=== PATIENT | female | born 1990 | race Caucasian/White ===

== ENCOUNTER 2020-03-10 07:07 | Inpatient (IN) | payer BC ==
[~2020-03-10 07:07] MED LIST: Bupivacaine 0.25% 10 ML SDV ONE
[2020-03-10] MEDS ORDERED: Sodium Chloride 0.9% 10 ML Syringe FLUSH PRN (12:48)
[2020-03-10] MEDS ORDERED: Nalbuphine 10 MG/ML Syringe IVPUSH PRN (12:48)
[2020-03-10] MEDS ORDERED: fentaNYL 100 MCG/2 ML SDV EPIDUR PRN (12:50)
[2020-03-10] MEDS ORDERED: ePHEDrine 50 MG/ML SDV IVPUSH PRN (12:50)
[2020-03-10] MEDS ORDERED: Ondansetron 4 MG/2 ML SDV IVPUSH PRN (12:50)
--- NOTE | 2020-03-10 12:53 | PCM.PREANE ---
Preanesthetic Assessment - Anesthesia/Transfusion/Family Hx Anesthesia History: Prior Anesthesia Without Reaction Family History of Anesthesia Reaction: No Transfusion History: No Prior Transfusion(s) Intubation History: Unknown - Review of Systems General: No Symptoms Pulmonary: No Symptoms Cardiovascular: No Symptoms Gastrointestinal: No Symptoms Neurological: No Symptoms Other: Reports: None - Physical Assessment NPO Status Date: 03/10/20 NPO Status Time: 12:15 Vital Signs: HR:105 B/P:149/90 Sat:99% Temp:98.8 Resp:16 Height: 1.73 m Weight: 83.552 kg ASA Class: 2 Mental Status: Alert & Oriented x3 Airway Class: Mallampati = 2 Dentition: Reports: Normal Dentition, Caries Thyro-Mental Finger Breadths: 3 Mouth Opening Finger Breadths: 3 ROM/Head Extension: Full Lungs: Clear to Auscultation, Normal Respiratory Effort Cardiovascular: Regular Rate, Regular Rhythm, No Murmurs - Lab Values: Labs reviewed and noted and within acceptable ranges to proceed with epidural if desired. - Allergies Allergies/Adverse Reactions: Allergies Allergy/AdvReac Type Severity Reaction Status Date / Time No Known Allergies Allergy Verified 03/13/18 16:16 - Anesthesia Plan Pre-Op Medication Ordered: None - Acknowledgements Anesthesia Type Planned: Epidural Pt an Appropriate Candidate for the Planned Anesthesia: Yes Alternatives and Risks of Anesthesia Discussed w Pt/Guardian: Yes Pt/Guardian Understands and Agrees with Anesthesia Plan: Yes PreAnesthesia Questionnaire SCOUT History: Reports: - Past Surgical History HEENT Surgical History: Reports: Oral Surgery Other HEENT Surgeries/Procedures: [place] teeth - HOME MEDS Home Medications: Home Meds Pnv No.95/Ferrous Fum/Folic AC [ Tablet] 1 tab PO DAILY 03/13/18 [History] Acetaminophen [Tylenol] 650 mg PO Q4H PRN tablet 03/15/18 [Rx] - CURRENT (IN HOUSE) MEDS Current Meds: Current Medications Ephedrine Sulfate (Ephedrine Sulfate) 5 mg IVPUSH ASDIRECTED PRN PRN Reason: Hypotension Fentanyl (Sublimaze) 100 mcg EPIDUR Q3H PRN PRN Reason: Pain Fentanyl/Bupivacaine HCl (Fentanyl/Bupivacaine/Ns 2 Mcg-0.125% 100 Ml) 100 ml EPIDUR ASDIRECTED FRIDA Phenylephrine HCl 1 mg/ Sodium (Chloride) 10.1 mls @ 1 mls/sec IV TITRATE FRIDA; Protocol Ondansetron HCl (Zofran) 4 mg IVPUSH ONETIME PRN PRN Reason: Nausea/Vomiting
[2020-03-10] MEDS ORDERED: Lactated Ringers 1,000 ML IV SCH (13:00)
[2020-03-10] MEDS ORDERED: Bupivacaine/fentaNYL/NS 100 ML Bag EPIDUR SCH (13:00)
[2020-03-10] MEDS ORDERED: Oxytocin/Lactated Ringers 10 UNIT/1,000 ML BAG IV SCH ×2 (13:00)
[2020-03-10] MEDS ORDERED: Phenylephrine 1 MG in Sodium Chloride 0.9% 10 ML IV SCH (13:00)
--- NOTE | 2020-03-10 21:14 | PCM.SN.2 ---
- Free Text/Narrative Note: Venita is a 29-year-old 2 now para 2-0-0-2 white female who was admitted and on the afternoon of 03/10/2020 elective induction of labor at 40-0/7 weeks with a due date of 03/10/2020. He underwent artificial rupture membranes which was followed approximately 2 hours later by Pitocin augmentation. With this she progressed reasonably well to approximately 6 cm. Shortly thereafter she received epidural analgesia for pain control in L&D. She rapidly went to complete cervical dilation and at 2044 hrs. on 03/10/2020 she delivered a viable, jarrett, male infant with Apgars of 8 and 9, a weight of 3590 g (7 pounds 14.6 ounces, a length of 20 inches a direct occiput anterior position over an intact perineum. Baby is placed on mom's abdomen and cord was allowed to pulsate for 2 to 3 minutes. Pitocin was increased to 500 cc/h to facilitate increase in uterine tone and decrease likelihood of uterine bleeding. The umbilical cord was then clamped x2 and cut by the baby's Father Christiano. The umbilical cord had 3 vessels within it. Cord blood was obtained. The perineum and vagina were evaluated and no significant lacerations were noted. No sutures were placed. The placenta then delivered in a [place] presentation, appeared intact and complete and was discarded per patient desire. Estimated blood loss was 100 cc. Patient plans to breast-feed. Condition: Good
[2020-03-10] MEDS ORDERED: Acetaminophen 325 MG Tab PO PRN (21:43)
[2020-03-10] MEDS ORDERED: Benzocaine/Menthol 20%-0.5% Spray 56 GM Canister TOP PRN (21:43)
[2020-03-10] MEDS ORDERED: Witch Hazel Medicated Pads 40/Jar TOP PRN (21:43)
[2020-03-10] MEDS: Ibuprofen 600 MG Tab PO PRN (22:55)
[2020-03-10] MEDS: Docusate Sodium 100 MG Cap PO PRN (22:55)
--- NOTE | 2020-03-11 07:49 | PCM48HPAN ---
Post Anesthesia Note - EVALUATION WITHIN 48HRS OF ANESTHETIC Vital Signs in Normal Range: Yes Patient Participated in Evaluation: Yes Respiratory Function Stable: Yes Airway Patent: Yes Cardiovascular Function Stable: Yes Hydration Status Stable: Yes Pain Control Satisfactory: Yes Nausea and Vomiting Control Satisfactory: Yes Mental Status Recovered: Yes Vital Signs: Last Vital Signs Temp 36.3 C 03/11/20 00:44 Pulse 79 03/11/20 00:44 Resp 15 03/11/20 00:44 BP 120/67 03/11/20 00:44 Pulse Ox 98 03/11/20 00:44 - COMMENTS/OBSERVATIONS Free Text/Narrative:: NO ANESTHESIA COMPLICATIONS NOTED
[2020-03-11] MEDS: Prenatal Multivitamin with Calcium/Folic Acid/Iron Tab PO SCH (08:42)
--- NOTE | 2020-03-11 11:58 | PCM.DCSUM1 ---
Discharge Summary - Hospital Course Free Text/Narrative:: Venita is a 29-year-old 2 now para 2-0-0-2 white female who was admitted and on the afternoon of 03/10/2020 elective induction of labor at 40-0/7 weeks with a due date of 03/10/2020. He underwent artificial rupture membranes which was followed approximately 2 hours later by Pitocin augmentation. With this she progressed reasonably well to approximately 6 cm. Shortly thereafter she received epidural analgesia for pain control in L&D. She rapidly went to complete cervical dilation and at 2045 hrs. on 03/10/2020 she delivered a viable, jarrett, male infant with Apgars of 8 and 9, a weight of 3590 g (7 pounds 14.6 ounces, a length of 20 inches a direct occiput anterior position over an intact perineum. Baby is placed on mom's abdomen and cord was allowed to pulsate for 2 to 3 minutes. Pitocin was increased to 500 cc/h to facilitate increase in uterine tone and decrease likelihood of uterine bleeding. The umbilical cord was then clamped x2 and cut by the baby's Father Christiano. The umbilical cord had 3 vessels within it. Cord blood was obtained. The perineum and vagina were evaluated and no significant lacerations were noted. No sutures were placed. The placenta then delivered in a [place] presentation, appeared intact and complete and was discarded per patient desire. Estimated blood loss was 100 cc. Patient plans to breast-feed. patient is done well. She is ambulating without problems, has minimal lochia and is voiding without concerns. She is breast-feeding well. Patient is desiring discharge home. Condition: Good Diagnosis: Stroke: No - Discharge Data Discharge Date: 03/11/20 Discharge Disposition: Home, Self-Care 01 Condition: Good - Referral to Home Health Primary Care Physician: Franklin Morales MD - Patient Instructions Diet: Regular Diet as Tolerated (Nursing diet with increased calories and calcium as recommended) Activity: As Tolerated (No intercourse or tampons until bleeding resolves) Driving: May Drive Today Showering/Bathing: May Shower Showering/Bathing, Other: May take a bath Notify Provider of: Fever, Increased Pain, Swelling and Redness, Nausea and/or Vomiting - Discharge Plan Home Medications: Home Meds Pnv No.95/Ferrous Fum/Folic AC [ Tablet] 1 tab PO DAILY 03/13/18 [History] Acetaminophen [Tylenol] 650 mg PO Q4H PRN tablet 03/15/18 [Rx] Acetaminophen [Tylenol] 650 mg PO Q4H PRN tablet 03/11/20 [Rx] Ibuprofen [Motrin] 600 mg PO Q4H PRN tablet 03/11/20 [Rx] Referrals: Franklin Morales MD [Primary Care Provider] - (Return to clinicDr. Morales or Hortensia Helms, nurse practitioner in 2 weeks.) - Discharge Summary/Plan Comment DC Time >30 min.: No Discharge Summary/Plan Comment: Discharge instructions: 1. Discharge home 2. Diet, activity and follow-up discussed with patient. Recommend nursing diet with increased calories and calcium. 3. Precautions given concern increased pain, bleeding, temperature, signs/symptoms of DVT/PE. 4. Medications per home medication was printed, discussed with and given to the patient. 5. [facility]. Diagnosis: Term -delivered Condition: Good - Patient Data Vitals - Most Recent: Last Vital Signs Temp 36.5 C 03/11/20 08:22 Pulse 73 03/11/20 08:22 Resp 16 03/11/20 08:22 BP 112/84 03/11/20 08:22 Pulse Ox 100 03/11/20 08:22 Weight - Most Recent: 83.552 kg I&O - Last 24 hours: Intake & Output 03/10/20 03/11/20 03/11/20 22:59 06:59 14:59 Intake Total 1500 240 Balance 1500 240 Lab Results - Last 24 hrs: Laboratory Results - last 24 hr 03/10/20 03/10/20 03/10/20 Range/Units 13:00 13:03 13:03 WBC 8.69 (3.98-10.04) K/mm3 RBC 3.95 L (3.98-5.22) M/mm3 Hgb 12.7 (11.2-15.7) gm/dl Hct 37.7 (34.1-44.9) % MCV 95.4 H (79.4-94.8) fl MCH 32.2 (25.6-32.2) pg MCHC 33.7 (32.2-35.5) g/dl RDW Std Deviation 46.1 (36.4-46.3) fL Plt Count 201 (182-369) K/mm3 MPV 9.5 (9.4-12.3) fl Neut % (Auto) 67.6 (34.0-71.1) % Lymph % (Auto) 18.2 L (19.3-51.7) % [place] % (Auto) 10.9 (4.7-12.5) % Eos % (Auto) 2.6 (0.7-5.8) Baso % (Auto) 0.5 (0.1-1.2) % Neut # (Auto) 5.87 (1.56-6.13) K/mm3 Lymph # (Auto) 1.58 (1.18-3.74) K/mm3 [place] # (Auto) 0.95 H (0.24-0.36) K/mm3 Eos # (Auto) 0.23 (0.04-0.36) K/mm3 Baso # (Auto) 0.04 (0.01-0.08) K/mm3 RPR Non-reactive (NONREACTIVE) COVID-19 (DAVID) Negative (NEGATIVE) Med Orders - Current: Current Medications Acetaminophen (Tylenol) 650 mg PO Q4H PRN PRN Reason: mild pain or fever Benzocaine/Menthol (Dermoplast Pain Relief [place]) 0 gm TOP ASDIRECTED PRN PRN Reason: Perineal Comfort Measure Last Admin: 03/10/20 22:54 Dose: 1 canister Documented by: Docusate Sodium (Colace) 100 mg PO BID PRN PRN Reason: Constipation Last Admin: 03/10/20 22:55 Dose: 100 mg Documented by: Ibuprofen (Motrin) 600 mg PO Q4H PRN PRN Reason: Mild pain or fever Last Admin: 03/10/20 22:55 Dose: 600 mg Documented by: Fernandaat Multivit/[place]/Iron/Folic Ac ( Plus Iron) 1 each PO DAILY FRIDA Last Admin: 03/11/20 08:42 Dose: 1 each Documented by: [facility]) 1 pad TOP ASDIRECTED PRN PRN Reason: Perineal Comfort Measure Last Admin: 03/10/20 22:55 Dose: 1 canister Documented by: Discontinued Medications Bupivacaine HCl (Sensorcaine-Mpf 0.25%) 10 ml .ROUTE .STK-MED ONE Stop: 03/10/20 00:01 Ephedrine Sulfate (Ephedrine Sulfate) 5 mg IVPUSH ASDIRECTED PRN PRN Reason: Hypotension Fentanyl (Sublimaze) 100 mcg EPIDUR Q3H PRN PRN Reason: Pain Last Admin: 03/10/20 20:04 Dose: 100 mcg Documented by: Fentanyl/Bupivacaine HCl (Fentanyl/Bupivacaine/Ns 2 Mcg-0.125% 100 Ml) 100 ml EPIDUR ASDIRECTED FRIDA Last Admin: 03/10/20 20:06 Dose: 100 ml Documented by: Phenylephrine HCl 1 mg/ Sodium (Chloride) 10.1 mls @ 1 mls/sec IV TITRATE FRIDA; Protocol Lactated Ringer's (Ringers, Lactated) 1,000 mls @ 100 mls/hr IV ASDIRECTED FRIDA Last Admin: 03/10/20 17:58 Dose: 100 mls/hr Documented by: Oxytocin/Lactated Ringer's (Pitocin In Lr 10 Units/1,000 Ml) 10 unit in 1,000 mls @ 500 mls/hr IV .CONTINUOUS FRIDA Oxytocin/Lactated Ringer's (Pitocin In Lr 10 Units/1,000 Ml) 10 unit in 1,000 mls @ 12 mls/hr IV TITRATE FRIDA; Protocol Last Titration: 03/10/20 19:57 Dose: 8 munits/min, 48 mls/hr Documented by: Nalbuphine HCl (Nubain) 10 mg IVPUSH Q2H PRN PRN Reason: Pain Ondansetron HCl (Zofran) 4 mg IVPUSH ONETIME PRN PRN Reason: Nausea/Vomiting Sodium Chloride (Saline Flush) 10 ml FLUSH ASDIRECTED PRN PRN Reason: Keep Vein Open
[2020-03-11] MEDS: Ibuprofen 600 MG Tab PO PRN ×2 (17:07→21:34)
[2020-03-12] MEDS: Ibuprofen 600 MG Tab PO PRN (03:06)
[2020-03-12] MEDS: Docusate Sodium 100 MG Cap PO PRN (03:07)
[2020-03-12] MEDS: Prenatal Multivitamin with Calcium/Folic Acid/Iron Tab PO SCH (10:10)
--- NOTE | 2020-03-21 07:20 | PCM.LDHP ---
L&D History of Present Illness - General Date of Service: 03/21/20 Admit Problem/Dx: Venita is a 29-year-old 2 para 1-0-0-1 white female admitted for elective induction of labor at 40-0/7 weeks gestational age with an LISA of 03/10/2020. Source of Information: Patient History Limitations: Reports: No Limitations - History of Present Illness Introduction:: Venita is a 29-year-old 2 para 1-0-0-1 white female admitted for elective induction of labor at 40-0/7 weeks gestational age with an LISA of 03/10/2020. She is admitted for elective induction of labor. The procedure, process are discussed in detail with patient. 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 LISA and 03/10/2020 is determined by an early ultrasound that was done on 08/05/2019 at 8-6/7 weeks gestational age and confirmed by an ultrasound on 10/26/2019. Patient history of a delivery on 2017-8 pound 0 ounce female born via spontaneous vaginal delivery. Child's name is Giulia Leon. The patient has no history of STIs or abnormal Pap smears. Menarche age 13, cycles monthly. No control at the time of conception. course: Patient was seen early in the at 8 weeks and 6 days. She was seen on a regular basis. Her vital signs remained stable throughout the course and her fundal height growth was appropriate. She is group B st rep negative. She was COVID positive during the but had minimal symptomatology and this is now resolved. She has no present signs or symptoms of COVID. She declined genetic evaluation. EPDS score was 0/30 on 10/26/2019. She desires epidural. Tdap 01/04/2020 was given. She had flu vaccination on 09/02/2019. She is rubella immune. HPV vaccination occurred in 2006. Hepatitis A vaccination occurred in 2010. Hepatitis B vaccination occurred in 2004. She had meningococcal vaccination in 2006 also. Laboratory testing in is unremarkable. RPR is nonreactive. Rubella immune. She is Rh+. Allergies: None Medications: 1. vitamins 1 p.o. daily Past medical history: 1. x1 2. COVID positive during the course of this pregnancynow resolved Past surgical history: Unremarkable Family history: Mother and father are alive and well. Father has hyperch olesterolemia and is on meds. One brother 1 sister alive and well. Maternal grandmother secondary to stroke. Maternal grandfather secondary to lung cancerwas a smoker. Paternal grandmother is alive but is a smoker. Paternal grandfather is secondary to brain cancer. No bleeding, clotting, anesthesia or related problems noted in the family. Social history. Patient is . is Christiano. She is a physical therapist. She does not use any significant also alcohol, drugs or tobacco. She lives and works in [place], [place]. Review of systems: In general patient has no complaints. Baby has been active. Patient has no signs or symptoms of COVID. Skin: Negative Lungs: No infectious symptoms or shortness of breath Cardiovascular: No chest pain or exercise intolerance Breasts: No lumps, changes in size, pain, dimpling, discharge or axillary or supraclavicular concerns. GI: Negative : changes only. Musculoskeletal: Negative Neurological: Negative Physical exam: In general the patient is well-developed, well-nourished, pleasant female of stated age in no acute distress. Skin is warm dry without lesions. HEENT, neck and back within normal limits. Lungs are clear with good breath sounds in all lung velez. Cardiovascular exam shows regular and rhythm without murmurs. Breast exam was done at the beginning of the and was within normal is. Is not repeated at this time. Abdomen gravid. Fundal height consistent with term . Genital exam per digital evaluation shows cervix 2 cm, 80% effaced, soft, mid position, -3. Extremities and neurological exam are grossly within normal limits. 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: - Past Surgical History HEENT Surgical History: Reports: Oral Surgery Other HEENT Surgeries/Procedures: [place] teeth Social & Family History - Family History Family Medical History: Noncontributory - Tobacco Use Smoking Status *Q: Never Smoker Second Hand Smoke Exposure: No - Caffeine Use Caffeine Use: Reports: None - Recreational Drug Use Recreational Drug Use: No H&P Review of Systems - Review of Systems: Review Of Systems: See Below L&D Exam - Exam Exam: See Below - Vital Signs Vital Signs: Last Vital Signs Temp 36.3 C 03/12/20 09:32 Pulse 76 03/12/20 09:32 Resp 16 03/12/20 09:32 BP 123/88 03/12/20 09:32 Pulse Ox 98 03/12/20 09:32 Weight: 83.552 kg - Patient Data Result Diagrams: 03/10/20 13:03 Problem List Initiated/Reviewed/Updated: Yes Assessment/Plan Comment:: 1. 40-0/7-week intrauterine with an LISA of 03/10/2020 mated for induction of labor. Procedure, process discussed with patient. She appears understand and wishes to proceed 2. Group B strep screen negative 3. Patient desires epidural 4. Patient is rubella immune. 5. Tdap given during . 6. COVID positive during now resolved. 7. Patient plans to breast-feed. Plan: 1. Elective induction of labor. 2. Epidural as needed 3. Support breast-feeding decision 4. Routine labor care.
== END 2020-03-12 10:50 | disposition home or self-care (01) | DRG 560 ==
LOC: JD.OB 07:07 → UNDOADMOB 07:07 → JD.OB 12:38 → OBSVTOIN 20:45
PROVIDERS: ADMIT Obstetrics & Gynecology; ATTEND Obstetrics & Gynecology
PROC: 10E0XZZ Delivery of Products of Conception, External Approach (ICD-10-PCS; principal; 2020-03-10)
PROC: 10907ZC Drainage of Amniotic Fluid, Therapeutic from Products of Conception, Via Natural or Artificial Opening (ICD-10-PCS; 2020-03-10)
PROC: 3E0R3BZ Introduction of Anesthetic Agent into Spinal Canal, Percutaneous Approach (ICD-10-PCS; 2020-03-10)
DX: O80 Encounter for full-term uncomplicated delivery (principal); Z37.0 Single live birth; Z3A.40 40 weeks gestation of pregnancy; Z20.828 Contact with and (suspected) exposure to other viral communicable diseases
CPT/HCPCS: 01967; 36415; 59025; 59409; 85025; 86592; A9270-GY; J2590; J3010; J3490; J7120; U0002

== ENCOUNTER 2022-07-23 07:14 | Inpatient (IN) | payer BC ==
[2022-07-23] MEDS ORDERED: Sodium Chloride 0.9% 10 ML Syringe FLUSH PRN (07:17)
[2022-07-23] MEDS ORDERED: Nalbuphine 10 MG/0.5 ML Syringe IVPUSH PRN (07:17)
[2022-07-23] MEDS ORDERED: Ondansetron 4 MG/2 ML SDV IVPUSH PRN (07:17)
[2022-07-23] MEDS ORDERED: Lactated Ringers 1,000 ML IV SCH (07:30)
[2022-07-23] MEDS ORDERED: Oxytocin/Lactated Ringers 10 UNIT/1,000 ML BAG IV SCH (07:30)
[2022-07-23] MEDS ORDERED: Sodium Chloride 0.9% 10 ML Syringe FLUSH SCH (09:00)
[2022-07-23] MEDS ORDERED: Ibuprofen 600 MG Tab PO PRN (12:50)
[2022-07-23] MEDS ORDERED: Lidocaine 1% 50 ML MDV INJECT ONE (12:52)
[2022-07-23] MEDS ORDERED: Benzocaine/Menthol 20%-0.5% Spray 78 GM Cannister TOP PRN (14:06)
[2022-07-23] MEDS ORDERED: Docusate Sodium 100 MG Cap PO PRN (14:06)
[2022-07-23] MEDS ORDERED: Acetaminophen 325 MG Tab PO PRN (14:06)
[2022-07-23] MEDS ORDERED: Witch Hazel Medicated Pads 40/Jar TOP PRN (14:06)
[2022-07-23] MEDS ORDERED: Methylergonovine 0.2 MG/1 ML Amp ONE (14:36)
[2022-07-23] MEDS: Ibuprofen 600 MG Tab PO PRN (20:39)
[2022-07-24] MEDS: Ibuprofen 600 MG Tab PO PRN (08:42)
[2022-07-24] MEDS ORDERED: Prenatal Multivitamin with Calcium/Folic Acid/Iron Tab PO SCH (09:00)
== END 2022-07-24 13:15 | disposition home or self-care (01) | DRG 560 ==
LOC: JD.OB 07:14
PROVIDERS: ADMIT Obstetrics & Gynecology; ATTEND Obstetrics & Gynecology
PROC: 10907ZC Drainage of Amniotic Fluid, Therapeutic from Products of Conception, Via Natural or Artificial Opening (ICD-10-PCS; principal; 2022-07-23)
PROC: 10E0XZZ Delivery of Products of Conception, External Approach (ICD-10-PCS; 2022-07-23)
DX: O48.0 Post-term pregnancy (principal); Z3A.40 40 weeks gestation of pregnancy; Z37.0 Single live birth
CPT/HCPCS: 36415; 59025; 59409; 85025; 86592; A9270-GY; J2001; J2590